=== PATIENT | female | born 1965 | race Caucasian/White ===

== ENCOUNTER 2019-02-18 05:21 | Observation (INO) ==
--- NOTE | 2019-02-18 05:37 | Emergency Department Note ---
Disposition Clinical Impression: Chest pain Qualifiers: Chest pain type: unspecified Qualified Code(s): R07.9 - Chest pain, unspecified Disposition: Admitted As Inpatient Condition: Good Referrals: Nohemi Borrero MD [Primary Care Provider] - Forms: ED Satisfaction Letter Time of Disposition: 06:56 Chest Pain HPI - General Chief Complaint: ED Chest Pain Stated Complaint: left arm pain, high bp Time Seen by Provider: 02/18/19 05:24 Source: patient Mode of arrival: ambulatory Limitations: no limitations Vital Signs Reviewed: Yes Nursing Notes Reviewed: Yes - History of Present Illness HPI Narrative: 53 year old female with Hx of HTN and DVT after surgery on Warfarin arrives to the ED complaining of 1 day of LUE pain that is nontraumatic and described as a soreness. States it radiates into the left neck. No Dyspnea or nausea. No other complaints. Taking meds as prescribed. The patient denies hx of hemoptysis, unilateral leg swelling other than baseline refleux of the LLE. The patient is resting comfortably in the room. No other complaints at this time. Patient is in no acute distress. - Related Data Home Medications Medication Instructions Recorded Confirmed Aspirin [Lo-Dose Aspirin EC] 81 mg PO DAILY 02/05/18 10/30/18 Losartan [Cozaar] 25 mg PO DAILY 02/05/18 10/30/18 Omeprazole [PriLOSEC] 40 mg PO DAILY 02/05/18 10/30/18 Warfarin [Coumadin] 2.5 mg PO DAILY 02/05/18 10/30/18 Previous Rx's Medication Instructions Recorded hydrOXYzine pamoate [HydrOXYzine 25 mg PO TID PRN #30 capsule 06/16/18 Pamoate] Amoxicillin 875 mg PO BID #20 tablet 10/30/18 Allergies Allergy/AdvReac Type Severity Reaction Status Date / Time lisinopril AdvReac Cough Verified 02/18/19 05:45 All systems ED: reviewed and negative except as stated. Constitutional: Denies: fever, chills, weakness ENT ED: Denies: dysphagia Cardiovascular: Denies: chest pain, dyspnea on exertion, edema Respiratory: Denies: dyspnea Gastrointestinal: Denies: abdominal pain Genitourinary: Denies: urgency, dysuria Musculoskeletal: Reports: arthralgia, myalgia. 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 - Social History Smoking Status: 2nd Hand Smoke Exposure Alcohol use: Reports: none Drug use: Reports: none Physical Exam - General Limitations: no limitations General appearance: alert, in no apparent distress - Head Head exam: atraumatic, normocephalic, normal inspection - Eye Eye exam: Present: normal appearance, PERRL, EOMI - Expanded Eye Exam Pupils: Left: reactive - ENT ENT exam: normal exam, normal oropharynx, mucous membranes moist - Neck Neck exam: Present: normal inspection, full ROM, trachea midline - Chest Chest inspection: Present: normal inspection, symmetric chest wall rise - Respiratory Respiratory exam: Present: normal lung sounds bilaterally - Cardiovascular Cardiovascular exam: Present: regular rate, normal rhythm, normal heart sounds - Abdominal Exam Abdominal exam: Present: soft, Non-Tender. Absent: tenderness, distention, guarding, rebound, rigidity - Extremities Exam Extremities exam: Present: normal inspection, full ROM, normal capillary refill. Absent: tenderness, pedal edema - Neurological Exam Neurological exam: Present: alert, oriented X3 - Skin Skin exam: Present: warm, dry, intact, normal color Course Course Narrative: Patient will be's signed out to [facility] attending physician Dr. Mariposa Sheets and her disposition will be admitted but the hospitalist after 7 AM well to take the patient Vital Signs Temperature 98.5 F 02/18/19 05:42 Pulse Rate 82 02/18/19 05:42 Respiratory Rate 20 02/18/19 05:42 Blood Pressure 151/90 02/18/19 05:42 O2 Sat by Pulse Oximetry 99 02/18/19 05:42 Temperature 98.5 F 02/18/19 05:48 Pulse Rate 67 02/18/19 07:00 Respiratory Rate 20 02/18/19 07:00 Blood Pressure 143/91 02/18/19 07:00 O2 Sat by Pulse Oximetry 98 02/18/19 07:00 Oxygen Delivery Oxygen Delivery Room Air Chest Pain - MDM Narrative Medical decision making narrative: Patient care will be signed out to the Day team, Dr. [place]. The patient has concerning history for ACS. Given risk factors and history we will recommend admission to the hospital for observation and trending of troponins. The patient agrees to plan of care at this time. - Lab Data Lab results reviewed: Yes I reviewed the patient's lab results. Result diagrams: 02/18/19 06:00 02/18/19 06:00 Lab Results 02/18/19 02/18/19 02/18/19 Range/Units 06:00 06:00 06:00 WBC 7.0 (4.3-11.1) K/mcL RBC 4.23 (3.82-4.97) M/mcL Hgb 12.7 (11.5-15.4) g/dL Hct 38.5 (35.3-44.9) % MCV 91.0 (83.0-100.0) fL MCH 30.0 (28.0-33.3) pg MCHC 33.0 (31.6-35.5) g/dL RDW 13.9 (11.5-14.5) % Plt Count 298 (140-400) K/mcL MPV 10.7 (9.4-12.4) fL Immature Gran % 0.3 (0-4) % Seg Neutrophils % 56.7 % Lymphocytes % 31.1 % Monocytes % 7.6 % Eosinophils % 3.7 % Basophils % 0.6 % Neutrophils # 4.0 (1.6-8.9) K/mcL Lymphocytes # 2.2 (0.6-4.6) K/mcL Monocytes # 0.5 (0.0-1.3) K/mcL Eosinophils # 0.3 (0.0-0.6) K/mcL Basophils # 0.0 (0.0-0.2) K/mcL PT 23.7 H (9.4-12.1) Seconds INR 2.1 APTT 37.1 H (26.0-36.0) Seconds Sodium 138 (136-145) mEq/L Potassium 5.9 H (3.5-5.1) mEq/L Chloride 101 (98-107) mEq/L Carbon Dioxide 24 (23-29) mEq/L BUN 10 (6-20) mg/dL Creatinine 1.03 (0.60-1.20) mg/dL Est GFR ( Amer) > 60 (> 60) Est GFR (Non-Af Amer) 56 L (> 60) BUN/Creatinine Ratio 10 (6-26) Glucose 131 H (70-105) mg/dL Calculated Osmolality 287 (280-300) Calcium 9.0 (8.6-10.3) mg/dL Troponin I < 0.03 (< 0.04) ng/mL - Radiology Data Radiology results reviewed: Yes I reviewed the patient's radiology results. Chest X-Ray 02/18/19 05:33 IMPRESSION: No acute cardiopulmonary disease or significant interval change from prior study 03/21/2010 D/ / Matthew Antonio / Matthew Antonio Interpreting Provider: Matthew Antonio - EKG Data EKG attestation: Yes I reviewed and interpreted this EKG. EKG results narrative: Heart rate 73 beats for minute. Normal sinus rhythm. No ST elevation or ST depression noted. There is some nonspecific changes noted particularly in aVL with new inverted T-wave. No other acute changes noted. Attestation Statement - Attestation Attestation: Dr. Granados note: Patient was seen in conjunction with resident Dr. Willie Simmons, please see his charting for complete documentation. Assessment [id number] time with the patient and agree with patient's treatment and disposition. Imaging chest pain left arm pain since noon yesterday at rest. Persisted overnight so she came in for evaluation. Denies such symptoms prior last stress test 6 years ago. On Coumadin at baseline for prior DVT. EKG and troponin results reviewed. Be admitted for serial enzymes and additional testing as directed by the hospitalist
[2019-02-18 06:12] LABS: Basophils % 0.6 %; Eosinophils # 0.3 K/mcL (0.0-0.6); Eosinophils % 3.7 %; Hematocrit 38.5 % (35.3-44.9); Hemoglobin 12.7 g/dL (11.5-15.4); Immature Granulocytes % 0.3 % (0-4); Lymphocytes # 2.2 K/mcL (0.6-4.6); Lymphocytes % 31.1 %; Mean Platelet Volume 10.7 fL (9.4-12.4); Monocytes # 0.5 K/mcL (0.0-1.3); Monocytes % 7.6 %; Platelet Count 298 K/mcL (140-400); Red Blood Count 4.23 M/mcL (3.82-4.97); Red Cell Distribution Width 13.9 % (11.5-14.5); Segmented Neutrophils % 56.7 %
[2019-02-18] MEDS ORDERED: Aspirin 325 MG TABLET PO ONE (06:22)
[2019-02-18 06:23] LABS: INR 2.1; Prothrombin Time 23.7 Seconds (9.4-12.1)
[2019-02-18 06:25] LABS: Activated Partial Thrombo Time 37.1 Seconds (26.0-36.0)
[2019-02-18 06:51] LABS: BUN/Creatinine Ratio 10 (6-26); Blood Urea Nitrogen 10 mg/dL (6-20); Carbon Dioxide 24 mEq/L (23-29); Chloride 101 mEq/L (98-107); Glucose 131 mg/dL (70-105); Troponin I < 0.03 ng/mL (< 0.04); eGFR For Non-African Americans 56 (> 60)
[2019-02-18] MEDS ORDERED: 0.9 % Sodium Chloride 1,000 ML IVC ONE (06:57)
--- NOTE | 2019-02-18 08:20 | Emergency Department Note ---
Disposition Clinical Impression: Chest pain Qualifiers: Chest pain type: unspecified Qualified Code(s): R07.9 - Chest pain, unspecified Disposition: Admitted As Inpatient Condition: Good Referrals: Nohemi Borrero MD [Primary Care Provider] - Forms: ED Satisfaction Letter General Adult HPI - General Chief complaint: ED Chest Pain Stated complaint: left arm & left neck pain,headache, high bp Time Seen by Provider: 02/18/19 05:24 Source: patient Mode of arrival: ambulatory Limitations: no limitations - History of Present Illness Pain Scale: 0 - Related Data Home Medications Medication Instructions Recorded Confirmed Aspirin [Lo-Dose Aspirin EC] 81 mg PO DAILY 02/05/18 10/30/18 Losartan [Cozaar] 25 mg PO DAILY 02/05/18 10/30/18 Omeprazole [PriLOSEC] 40 mg PO DAILY 02/05/18 10/30/18 Warfarin [Coumadin] 2.5 mg PO DAILY 02/05/18 10/30/18 Previous Rx's Medication Instructions Recorded hydrOXYzine pamoate [HydrOXYzine 25 mg PO TID PRN #30 capsule 06/16/18 Pamoate] Amoxicillin 875 mg PO BID #20 tablet 10/30/18 Allergies Allergy/AdvReac Type Severity Reaction Status Date / Time lisinopril AdvReac Cough Verified 02/18/19 05:45 Constitutional: Denies: fever, chills, weakness ENT ED: Denies: dysphagia Cardiovascular: Denies: chest pain, dyspnea on exertion, edema Respiratory: Denies: dyspnea Gastrointestinal: Denies: abdominal pain Genitourinary: Denies: urgency, dysuria Musculoskeletal: Reports: arthralgia, myalgia. 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 history - Social History Smoking Status: 2nd Hand Smoke Exposure Smokeless Tobacco Status: No Alcohol use: Reports: none Drug use: Reports: none Physical Exam - General Limitations: no limitations General appearance: alert, in no apparent distress Course Vital Signs Temperature 98.5 F 02/18/19 05:42 Pulse Rate 82 02/18/19 05:42 Respiratory Rate 20 02/18/19 05:42 Blood Pressure 151/90 02/18/19 05:42 O2 Sat by Pulse Oximetry 99 02/18/19 05:42 Temperature 98.5 F 02/18/19 05:48 Pulse Rate 68 02/18/19 07:51 Respiratory Rate 18 02/18/19 07:51 Blood Pressure 143/91 02/18/19 07:51 O2 Sat by Pulse Oximetry 98 02/18/19 07:51 Oxygen Delivery Oxygen Delivery Room Air Medical Decision Making - Lab Data Result diagrams: 02/18/19 06:00 02/18/19 06:00 Lab Results 02/18/19 02/18/19 02/18/19 Range/Units 06:00 06:00 06:00 WBC 7.0 (4.3-11.1) K/mcL RBC 4.23 (3.82-4.97) M/mcL Hgb 12.7 (11.5-15.4) g/dL Hct 38.5 (35.3-44.9) % MCV 91.0 (83.0-100.0) fL MCH 30.0 (28.0-33.3) pg MCHC 33.0 (31.6-35.5) g/dL RDW 13.9 (11.5-14.5) % Plt Count 298 (140-400) K/mcL MPV 10.7 (9.4-12.4) fL Immature Gran % 0.3 (0-4) % Seg Neutrophils % 56.7 % Lymphocytes % 31.1 % Monocytes % 7.6 % Eosinophils % 3.7 % Basophils % 0.6 % Neutrophils # 4.0 (1.6-8.9) K/mcL Lymphocytes # 2.2 (0.6-4.6) K/mcL Monocytes # 0.5 (0.0-1.3) K/mcL Eosinophils # 0.3 (0.0-0.6) K/mcL Basophils # 0.0 (0.0-0.2) K/mcL PT 23.7 H (9.4-12.1) Seconds INR 2.1 APTT 37.1 H (26.0-36.0) Seconds Sodium 138 (136-145) mEq/L Potassium 5.9 H (3.5-5.1) mEq/L Chloride 101 (98-107) mEq/L Carbon Dioxide 24 (23-29) mEq/L BUN 10 (6-20) mg/dL Creatinine 1.03 (0.60-1.20) mg/dL Est GFR ( Amer) > 60 (> 60) Est GFR (Non-Af Amer) 56 L (> 60) BUN/Creatinine Ratio 10 (6-26) Glucose 131 H (70-105) mg/dL Calculated Osmolality 287 (280-300) Calcium 9.0 (8.6-10.3) mg/dL Troponin I < 0.03 (< 0.04) ng/mL Attestation Statement - Attestation Attestation: I examined this patient and my medical decision-making was reviewed with the Resident Physician. I agree with the documented findings, disposition and treatment plan as described except to the extent set forth below. 53 year old female with complanits of chest pain and has been signed out to us from the night team. Plan is to recheck potassium and then admit for CP r/o ACS. I have called lab for followup and they state that there it is 4.3 and that the previous sample was hemolyzed.
--- NOTE | 2019-02-18 08:23 | Emergency Department Note ---
Disposition Clinical Impression: Chest pain Qualifiers: Chest pain type: unspecified Qualified Code(s): R07.9 - Chest pain, unspecified Disposition: Admitted As Inpatient Condition: Good Referrals: Nohemi Borrero MD [Primary Care Provider] - Forms: ED Satisfaction Letter Time of Disposition: 08:45 Chest Pain HPI - General Chief Complaint: ED Chest Pain Stated Complaint: left arm & left neck pain,headache, high bp Time Seen by Provider: 02/18/19 05:24 Source: patient Mode of arrival: ambulatory Limitations: no limitations - History of Present Illness Severity scale (1-10): 0 - Related Data Home Medications Medication Instructions Recorded Confirmed Aspirin [Lo-Dose Aspirin EC] 81 mg PO DAILY 02/05/18 10/30/18 Losartan [Cozaar] 25 mg PO DAILY 02/05/18 10/30/18 Omeprazole [PriLOSEC] 40 mg PO DAILY 02/05/18 10/30/18 Warfarin [Coumadin] 2.5 mg PO DAILY 02/05/18 10/30/18 Previous Rx's Medication Instructions Recorded hydrOXYzine pamoate [HydrOXYzine 25 mg PO TID PRN #30 capsule 06/16/18 Pamoate] Amoxicillin 875 mg PO BID #20 tablet 10/30/18 Allergies Allergy/AdvReac Type Severity Reaction Status Date / Time lisinopril AdvReac Cough Verified 02/18/19 05:45 Constitutional: Denies: fever, chills, weakness ENT ED: Denies: dysphagia Cardiovascular: Denies: chest pain, dyspnea on exertion, edema Respiratory: Denies: dyspnea Gastrointestinal: Denies: abdominal pain Genitourinary: Denies: urgency, dysuria Musculoskeletal: Reports: arthralgia, myalgia. 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 - Social History Smoking Status: 2nd Hand Smoke Exposure Alcohol use: Reports: none Drug use: Reports: none Physical Exam - General Limitations: no limitations General appearance: alert, in no apparent distress Course Vital Signs Temperature 98.5 F 02/18/19 05:42 Pulse Rate 82 02/18/19 05:42 Respiratory Rate 20 02/18/19 05:42 Blood Pressure 151/90 02/18/19 05:42 O2 Sat by Pulse Oximetry 99 02/18/19 05:42 Temperature 98.5 F 02/18/19 05:48 Pulse Rate 67 02/18/19 07:00 Respiratory Rate 20 02/18/19 07:00 Blood Pressure 143/91 02/18/19 07:00 O2 Sat by Pulse Oximetry 98 02/18/19 07:00 Oxygen Delivery Oxygen Delivery Room Air Chest Pain - MDM Narrative Medical decision making narrative: Patient was received in signout from Dr. Forrest and Dr. Granados. Please see their documentation for history of presenting illness, physical exam and initial medical decision making. Upon signout a repeat potassium was pending. The initial potassium was 5.9. The patient had reported chest tightness that was located in the center of her chest as well as neck and left arm pain. Disposition of the patient had ready been determined as admission. Patient was in agreement with this plan. Patient's repeat potassium was 4.3. After discussion with the lab it sounds like the first sample may have been hemolyzed. No further intervention for the patient's potassium will be done at this time. Patient will require admission to the hospital for chest pain rule out. I called spoke the admitting hospitalist Dr. Dickinson and she has accepted the patient to their service. Patient will be admitted to the hospital at this time. - Medical Records Medical records reviewed: Yes I reviewed the patient's medical records. - Lab Data Lab results reviewed: Yes I reviewed the patient's lab results. Result diagrams: 02/18/19 06:00 02/18/19 06:00 Lab Results 02/18/19 02/18/19 02/18/19 Range/Units 06:00 06:00 06:00 WBC 7.0 (4.3-11.1) K/mcL RBC 4.23 (3.82-4.97) M/mcL Hgb 12.7 (11.5-15.4) g/dL Hct 38.5 (35.3-44.9) % MCV 91.0 (83.0-100.0) fL MCH 30.0 (28.0-33.3) pg MCHC 33.0 (31.6-35.5) g/dL RDW 13.9 (11.5-14.5) % Plt Count 298 (140-400) K/mcL MPV 10.7 (9.4-12.4) fL Immature Gran % 0.3 (0-4) % Seg Neutrophils % 56.7 % Lymphocytes % 31.1 % Monocytes % 7.6 % Eosinophils % 3.7 % Basophils % 0.6 % Neutrophils # 4.0 (1.6-8.9) K/mcL Lymphocytes # 2.2 (0.6-4.6) K/mcL Monocytes # 0.5 (0.0-1.3) K/mcL Eosinophils # 0.3 (0.0-0.6) K/mcL Basophils # 0.0 (0.0-0.2) K/mcL PT 23.7 H (9.4-12.1) Seconds INR 2.1 APTT 37.1 H (26.0-36.0) Seconds Sodium 138 (136-145) mEq/L Potassium 5.9 H (3.5-5.1) mEq/L Chloride 101 (98-107) mEq/L Carbon Dioxide 24 (23-29) mEq/L BUN 10 (6-20) mg/dL Creatinine 1.03 (0.60-1.20) mg/dL Est GFR ( Amer) > 60 (> 60) Est GFR (Non-Af Amer) 56 L (> 60) BUN/Creatinine Ratio 10 (6-26) Glucose 131 H (70-105) mg/dL Calculated Osmolality 287 (280-300) Calcium 9.0 (8.6-10.3) mg/dL Troponin I < 0.03 (< 0.04) ng/mL - Radiology Data Radiology results reviewed: Yes I reviewed the patient's radiology results.
[2019-02-18 08:31] LABS: Potassium 4.3 mEq/L (3.5-5.1)
--- NOTE | 2019-02-18 09:13 | Internal Med History&Physical ---
Date of Encounter: 02/17/19 Time of Encounter: 09:11 Internal Medicine - H&P: HPI Chief complaint: CP History of present illness: 53 old female with Hx of HTN and DVT after surgery on Warfarin arrives to the ED complaining of 1 day of LUE pain that is radiates into the left neck. She denies SOB, palpation or diaphoresis, She was evaluated by the ER staff and her ECG with no significant ST.T wave changes, Cardiac enzyme first set was normal. Her laboratory data revealed initial potassium was 5.9, but repeat was normal. She was admitted for further evaluation. Past Med Surg Social Fam HX - Past Medical History Medical history: COPD, DVT (left), GERD, hypertension, thyroid disease (Hypothyroidism), other (Insomnia; Chronic venous insufficiency, peripheral) Additional medical history: diverticulosis Psychiatric history: anxiety, depression - Past Surgical History Surgical History: appendectomy, other Additional surgical history: mouth, back - Social History Smoking Status: 2nd Hand Smoke Exposure Smokeless Tobacco Status: No Alcohol use: none Drug use: none Internal Medicine - H&P: Meds Aspirin [Lo-Dose Aspirin EC] 81 mg PO DAILY 02/05/18 [History] Losartan [Cozaar] 25 mg PO DAILY 02/05/18 [History] Omeprazole [PriLOSEC] 40 mg PO DAILY 02/05/18 [History] Warfarin [Coumadin] 2.5 mg PO DAILY 02/05/18 [History] Atorvastatin [Lipitor] 20 mg PO DAILY 02/18/19 [History] ALPRAZolam [Xanax 0.25 MG Tablet] 0.25 mg PO BID PRN 02/19/19 [History] Zolpidem Tartrate 5 mg PO HS PRN 02/19/19 [History] Allergy/AdvReac Type Severity Reaction Status Date / Time lisinopril AdvReac Cough Verified 02/18/19 05:45 All Systems PM: A 10-system review of systems was performed and is negative for pertinent findings except as documented above in the HPI. - Constitutional Constitutional: no chills, no fever(s), no night sweats - EENT Eyes: no change in vision, no discharge, no pain, no photophobia Ears: no ear discharge, no ear pain, no tinnitus Nose, mouth and throat: no dysphagia, no nasal discharge, no neck pain, no sore throat - Cardiovascular Cardiovascular ROS IM: chest pain, no diaphoresis, no dyspnea, no lightheadedness, no palpitations, no syncope - Respiratory Respiratory: no cough, no dyspnea, no wheezing, no excessive phlegm production - Gastrointestinal Gastrointestinal: no abdominal pain, no diarrhea, no hematemesis, no hematochezia, no melena, no nausea, no vomiting - Genitourinary Genitourinary: no change in urinary stream, no dysuria, no flank pain, no hematuria - Musculoskeletal Musculoskeletal ROS IM: no numbness, no tingling - Integumentary Integumentary IM: no rash, no unusual bruising - Neurological Neurological ROS: no confusion, no convulsions, no focal weakness, no numbness, no tingling, no tremor(s) - Hematologic/Lymphatic Hematologic/Lymphatic: no easy bruising - Constitutional Vitals: Temp Pulse Resp BP Pulse Ox 98.5 F 68 18 143/91 98 02/18/19 05:48 02/18/19 07:51 02/18/19 07:51 02/18/19 07:51 02/18/19 07:51 Exam: As below - Head Head exam: Present: atraumatic, normocephalic - Eye Eye exam: Present: PERRL, conjuntiva pink, sclera anicteric Pupils: Present: PERRL - Neck Neck exam general surgery: Present: supple, trachea midline. Absent: lymphadenopathy - Respiratory Respiratory exam: Present: CTAB. Absent: accessory muscle use, rales, rhonchi, wheezes - Cardiovascular Cardiovascular exam: Present: RRR, +S1, +S2. Absent: diastolic murmur, gallop, rubs, systolic murmur - GI/Abdominal GI/Abdominal exam: Present: normal bowel sounds, soft, no peritoneal signs. Absent: distended, tenderness - Extremities Exam Extremities exam: Present: warm, radial pulses palpable and symmetrical. Absent: calf tenderness, cyanotic, pedal edema - Neurological Exam Neurological exam: Present: CN II-XII intact, oriented X3, no focal deficits. Absent: pronater drift, facial droop, speech deficit - Skin Skin exam: Present: dry, intact Internal Med - H&P Results - Labs CBC & Chem 7: 02/19/19 03:31 02/19/19 03:31 Labs: Short CBC 02/18/19 Range/Units 06:00 WBC 7.0 (4.3-11.1) K/mcL Hgb 12.7 (11.5-15.4) g/dL Hct 38.5 (35.3-44.9) % Plt Count 298 (140-400) K/mcL Neutrophils # 4.0 (1.6-8.9) K/mcL BMP 02/18/19 02/18/19 06:00 07:21 Sodium TNP 138 Potassium TNP 4.3 Chloride 101 Carbon Dioxide 24 BUN 10 Creatinine 1.03 Glucose 131 H Calcium 9.0 Cardiac Enzymes 02/18/19 Range/Units 06:00 Troponin I < 0.03 (< 0.04) ng/mL - Impressions ITS Impressions Chest X-Ray 02/18/19 05:33 IMPRESSION: No acute cardiopulmonary disease or significant interval change from prior study 03/21/2010 D/ / Matthew Antonio / Matthew Antonio Interpreting Provider: Matthew Antonio - Assessment and Plan (1) Chest pain Status: Acute Assessment and plan: Chest pain R/O *CAD DD *Muskuloskeletal CP - myofascial strain, costochondritis *GERD *Esophageal spasm *Pneumonia - no infiltrate on CXR PLAN: - cardiac enzymes x 2 q 8 hr - EKG now and in AM - ASA - O2 by NC to keep SpO2 greater than 92% - UA - CBCD, BMP in AM - Fasting lipids - Tylenol 650 mg PO q 4-6 hr PRN headache - 2D Echo - Stress test in AM Qualifiers: Chest pain type: unspecified Qualified Code(s): R07.9 - Chest pain, unspecified (2) Hypertension Status: Chronic Assessment and plan: We will cont home ARBs Qualifiers: Hypertension type: unspecified Qualified Code(s): I10 - Essential (primary) hypertension (3) DVT (deep venous thrombosis) Status: Acute Assessment and plan: We will hold tonight dose of Coumadin for possible intervention, pharmacy to dose Qualifiers: DVT location: lower extremity Affected thrombotic vein of extremity: unspec ified vein of extremity Chronicity: unspecified Laterality: unspecified laterality Qualified Code(s): I82.409 - Acute embolism and thrombosis of unspecified deep veins of unspecified lower extremity - Time Spent With Patient Total time spent is greater than 50% in coordination of care (as documented) at patient's floor/unit and/or counseling patient:
[2019-02-18] MEDS ORDERED: Naloxone 0.4 MG/ML INJ IVP PRN (09:29)
[2019-02-18] MEDS ORDERED: Ondansetron ODT 4 MG TAB.RAPDIS SL PRN (09:29)
[2019-02-18 11:45] LABS: Chol/HDL Ratio 3.8 (0-4.9)
[2019-02-18] MEDS: Acetaminophen 325 MG TABLET PO PRN (19:11)
[2019-02-18] MEDS: hydrOXYzine pamoate 25 MG CAPSULE PO PRN (21:46)
[2019-02-19 03:51] LABS: Basophils # 0.1 K/mcL (0.0-0.2); Basophils % 0.8 %; Eosinophils # 0.3 K/mcL (0.0-0.6); Eosinophils % 4.3 %; Hematocrit 37.9 % (35.3-44.9); Hemoglobin 12.1 g/dL (11.5-15.4); Immature Granulocytes % 0.1 % (0-4); Lymphocytes % 39.4 %; Mean Corpuscular HGB Conc 31.9 g/dL (31.6-35.5); Mean Corpuscular Volume 90.9 fL (83.0-100.0); Mean Platelet Volume 10.6 fL (9.4-12.4); Monocytes # 0.6 K/mcL (0.0-1.3); Monocytes % 7.9 %; Neutrophils # 3.7 K/mcL (1.6-8.9); Platelet Count 311 K/mcL (140-400); Red Blood Count 4.17 M/mcL (3.82-4.97); Red Cell Distribution Width 13.7 % (11.5-14.5); Segmented Neutrophils % 47.5 %
[2019-02-19 03:59] LABS: INR 1.8; Prothrombin Time 20.7 Seconds (9.4-12.1)
[2019-02-19 04:01] LABS: Activated Partial Thrombo Time 39.1 Seconds (26.0-36.0)
[2019-02-19 04:08] LABS: Alanine Aminotransferase 13 Units/L (7-52); Albumin 3.6 g/dL (3.5-5.7); Albumin/Globulin Ratio 1.3 (1.1-2.2); Alkaline Phosphatase 85 Units/L (34-104); Aspartate Amino Transferase 13 Units/L (13-39); BUN/Creatinine Ratio 12 (6-26); Bilirubin,Total 0.6 mg/dL (0.3-1.0); Blood Urea Nitrogen 12 mg/dL (6-20); Calcium 8.8 mg/dL (8.6-10.3); Carbon Dioxide 22 mEq/L (23-29); Chloride 107 mEq/L (98-107); Globulin 2.8 g/dL (2.4-3.5); Glucose 108 mg/dL (70-105); Magnesium 2.1 mg/dL (1.6-2.6); Osmolality,Calculated 284 (280-300); Phosphorous 4.5 mg/dL (2.7-4.5); Potassium 4.1 mEq/L (3.5-5.1); Sodium 137 mEq/L (136-145); Total Protein 6.4 g/dL (6.4-8.9); eGFR For Non-African Americans 58 (> 60)
[2019-02-19] MEDS ORDERED: Regadenoson 0.4 MG/5 ML SYRINGE IVP ONE (06:58)
--- NOTE | 2019-02-19 14:46 | Internal Med Progress Note ---
Hospitalist Progress Note - Encounter Date of Encounter: 02/19/19 Time of Encounter: 13:00 - Subjective Interval History: H&P reviewed. Patient with history of morbid obesity, hypertension, DVT on Coumadin, was admitted yesterday due to intermittent chest pain associated with left neck and upper extremity discomfort. Currently denies any symptoms. No f ever/chills or cough - Exam Vitals: Temp Pulse Resp BP Pulse Ox 97.4 F L 63 16 117/75 96 02/19/19 11:23 02/19/19 11:23 02/19/19 11:23 02/19/19 11:23 02/19/19 11:23 Exam: General: Alert and oriented, not in acute distress. Cardiovascular:Normal S1 & S2, No JVD. Pulse regular. No chest wall tenderness Lungs: clear to auscultation, no wheezes/rales Abdomen:Soft, non-tender, no rigidity. Extremities:No deformity or swelling Neurological:Normal cognition and motor skills. Non-focal - Assessment and Plan (1) Chest pain Current Visit: Yes Status: Acute Assessment and Plan: atypical chest pain in a pt with HTN and morbid obesity ACS ruled out for 2-day stress test due to morbid obesity Echocardiogram (2) DVT (deep venous thrombosis) Current Visit: Yes Status: Acute Assessment and Plan: Resume Coumadin, INR 1.8 today Daily INR (3) Hypertension Current Visit: Yes Status: Chronic Assessment and Plan: Continue home meds DVT Prophylaxis: Patient is ambulatory - Time Spent with Patient Total time spent is greater than 50% in coordination of care (as documented) at patient's floor/unit and/or counseling patient: Plan of Care Discussed with: patient Internal Medicine: Result - Labs CBC & Chem 7: 02/19/19 03:31 02/19/19 03:31 Labs: Short CBC 02/19/19 Range/Units 03:31 WBC 7.7 (4.3-11.1) K/mcL Hgb 12.1 (11.5-15.4) g/dL Hct 37.9 (35.3-44.9) % Plt Count 311 (140-400) K/mcL Neutrophils # 3.7 (1.6-8.9) K/mcL BMP 02/19/19 03:31 Sodium 137 Potassium 4.1 Chloride 107 Carbon Dioxide 22 L BUN 12 Creatinine 1.01 Glucose 108 H Calcium 8.8 Cardiac Enzymes 02/18/19 02/18/19 02/19/19 Range/Units 14:30 21:52 03:31 Troponin I < 0.03 < 0.03 < 0.03 (< 0.04) ng/mL Liver Function 02/19/19 Range/Units 03:31 Total Bilirubin 0.6 (0.3-1.0) mg/dL AST 13 (13-39) Units/L ALT 13 (7-52) Units/L Alkaline Phosphatase 85 (34-104) Units/L Albumin 3.6 (3.5-5.7) g/dL - ABG Interpretation ABG results: PT/INR, D-dimer PT 20.7 Seconds (9.4-12.1) H 02/19/19 03:31 Consult Discharge Plan - Plan Referrals: Nohemi Borrero MD [Primary Care Provider] - (1) Chest pain Qualifiers: Chest pain type: unspecified Qualified Code(s): R07.9 - Chest pain, unspecified (3) Hypertension Qualifiers: Hypertension type: unspecified Qualified Code(s): I10 - Essential (primary) hypertension
[2019-02-19] MEDS ORDERED: Warfarin perPT PO PRN (18:00)
[2019-02-19] MEDS ORDERED: *HR* Warfarin 3 MG TABLET PO ONE (18:00)
[2019-02-19] MEDS: Acetaminophen 325 MG TABLET PO PRN (21:44)
[2019-02-19] MEDS: hydrOXYzine pamoate 25 MG CAPSULE PO PRN (21:44)
[2019-02-19] MEDS ORDERED: ALPRAZolam 0.25 MG TABLET PO PRN (21:46)
[2019-02-20 06:02] LABS: INR 1.5; Prothrombin Time 17.1 Seconds (9.4-12.1)
--- NOTE | 2019-02-20 09:32 | Electrocardiograph Report ---
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
[2019-02-20 10:36] VITALS: BP 127/79
--- NOTE | 2019-02-20 11:23 | Discharge Summary ---
- NOTES TO OUTPATIENT PROVIDER Notes to Outpatient Provider: Follow up with PCP and anticoagulation clinic Orders not resulted at time of discharge: Pending orders 02/18/19 18:14 NM scott perf SPECT multi [NM] Routine 02/21/19 04:00 PT/INR [Prothrombin Time INR] [COAG] AM 0400 02/22/19 04:00 PT/INR [Prothrombin Time INR] [COAG] AM 0400 02/23/19 04:00 PT/INR [Prothrombin Time INR] [COAG] AM 0400 02/24/19 04:00 PT/INR [Prothrombin Time INR] [COAG] AM 040 Date of Encounter: 02/20/19 Time of Encounter: 10:00 - Discharge Diagnosis (1) Chest pain Priority: Primary Status: Acute Qualifiers: Chest pain type: unspecified Qualified Code(s): R07.9 - Chest pain, unspecified (2) DVT (deep venous thrombosis) Priority: Secondary Status: Acute Qualifiers: DVT location: lower extremity Affected thrombotic vein of extremity: unspecified vein of extremity Chronicity: unspecified Laterality: unspecified laterality Qualified Code(s): I82.409 - Acute embolism and thrombosis of unspecified deep veins of unspecified lower extremity (3) Hypertension Priority: Secondary Status: Chronic Qualifiers: Hypertension type: unspecified Qualified Code(s): I10 - Essential (primary) hypertension Hospital course: Ms. Del Rio is a 53 year old female with history of hypertension, DVT on Coumadin, and morbid obesity, was admitted for atypical chest pain. ACS ruled out. Underwent 2 days stress test due to her BMI which came back -ve for ischemia or infarct. She will be discharged home with PCP and anticoagulation clinic follow up. Discharge discussed with: patient, nurse - Time Spent with Patient Total time spent providing and/or coordinating discharge services: 26 mins - Discharge Medications Prescriptions: Continue Warfarin [Coumadin] 2.5 mg PO DAILY Omeprazole [PriLOSEC] 40 mg PO DAILY Losartan [Cozaar] 25 mg PO DAILY Aspirin [Lo-Dose Aspirin EC] 81 mg PO DAILY Atorvastatin [Lipitor] 20 mg PO DAILY ALPRAZolam [Xanax 0.25 MG Tablet] 0.25 mg PO BID PRN PRN Reason: Anxiety Zolpidem Tartrate 5 mg PO HS PRN PRN Reason: Sleep Home Medications: Aspirin [Lo-Dose Aspirin EC] 81 mg PO DAILY 02/05/18 [History] Losartan [Cozaar] 25 mg PO DAILY 02/05/18 [History] Omeprazole [PriLOSEC] 40 mg PO DAILY 02/05/18 [History] Warfarin [Coumadin] 2.5 mg PO DAILY 02/05/18 [History] Atorvastatin [Lipitor] 20 mg PO DAILY 02/18/19 [History] ALPRAZolam [Xanax 0.25 MG Tablet] 0.25 mg PO BID PRN 02/19/19 [History] Zolpidem Tartrate 5 mg PO HS PRN 02/19/19 [History] Allergies/Adverse Reactions: Allergy/AdvReac Type Severity Reaction Status Date / Time lisinopril AdvReac Cough Verified 02/18/19 05:45 Date of admission: 02/18/19 09:28 Primary care physician: Nohemi Borrero - Constitutional Vitals: Temp Pulse Resp BP Pulse Ox 98.1 F 58 15 127/79 97 02/20/19 10:35 02/20/19 10:35 02/20/19 10:35 02/20/19 10:35 02/20/19 10:35 Exam: General: Alert and oriented, not in acute distress. Cardiovascular:Normal S1 & S2, No JVD. Pulse regular. No chest wall tenderness Lungs: clear to auscultation, no wheezes/rales Abdomen:Soft, non-tender, no rigidity. Extremities:No deformity or swelling Neurological:Normal cognition and motor skills. Non-focal - Patient Status Disposition: Home, Self-Care Condition: Fair Functional capacity at discharge: independent ambulation Overall status at discharge: patient is back to baseline - Discharge Instructions Instructions: Chest Pain (DC), Chronic Hypertension (DC) Follow Up With: Nohemi Borrero MD [Primary Care Provider] - Additional Instructions: Follow-up in anticoagulation clinic - Diet and Activity Activity: resume usual activities as tolerated Diet: low salt diet
== END 2019-02-20 11:43 | disposition home or self-care (01) ==
LOC: EMEROOARM 05:21 → 2SOUTHHOLD 05:21 → SUATTDRO 09:28 → 2SOUTHHOLD 10:04 → 3BNU 20:49
PROVIDERS: ADMIT Internal Medicine Nephrology; ATTEND Internal Medicine